=== PATIENT | male | born 1985 | race Caucasian/White ===

== ENCOUNTER 2017-07-21 21:48 | Emergency (ER) | payer OTHER ==
[~2017-07-21] VITALS: Ht 182.9 cm; Wt 113.4 kg
[2017-07-22 00:03] VITALS: BP 139/79
== END 2017-07-22 00:05 | disposition home or self-care (01) ==
LOC: M.ERS 21:48
DX: L84 Corns and callosities (principal); Z76.5 Malingerer [conscious simulation]